=== PATIENT | male | born 1995 | race Caucasian/White ===

== ENCOUNTER 2020-07-12 16:21 | Emergency (ER) | payer SELFPAY ==
[~2020-07-12] VITALS: Ht 170.2 cm; Wt 60.0 kg
[2020-07-12 18:24] VITALS: BP 138/72
== END 2020-07-12 18:24 | disposition home or self-care (01) | DRG 204 ==
LOC: ED 16:21
DX: R05 Cough (principal); F17.200 Nicotine dependence, unspecified, uncomplicated; Z20.822 Contact with and (suspected) exposure to COVID-19

== ENCOUNTER 2020-07-21 17:43 | Emergency (ER) | payer SELFPAY ==
[~2020-07-21] VITALS: Ht 170.2 cm; Wt 79.5 kg
[2020-07-22 07:44] VITALS: BP 129/75
== END 2020-07-21 18:55 | disposition home or self-care (01) | DRG 563 ==
LOC: ED 17:43
DX: S63.612A Unspecified sprain of right middle finger, initial encounter (principal); F17.210 Nicotine dependence, cigarettes, uncomplicated; W23.0XXA Caught, crushed, jammed, or pinched between moving objects, initial encounter; Y92.009 Unspecified place in unspecified non-institutional (private) residence as the place of occurrence of the external cause

== ENCOUNTER 2021-04-01 19:44 | Emergency (ER) | payer SELFPAY ==
[~2021-04-01] VITALS: Ht 170.2 cm; Wt 82.0 kg
[2021-04-01 20:55] VITALS: BP 131/72
== END 2021-04-01 20:55 | disposition home or self-care (01) | DRG 605 ==
LOC: ED 19:44
PROC: 0HQKXZZ Repair Right Lower Leg Skin, External Approach (ICD-10-PCS; principal; 2021-04-01)
DX: S81.811A Laceration without foreign body, right lower leg, initial encounter (principal); F17.200 Nicotine dependence, unspecified, uncomplicated; W26.0XXA Contact with knife, initial encounter; Y92.009 Unspecified place in unspecified non-institutional (private) residence as the place of occurrence of the external cause